=== PATIENT | female | born 1955 | race Caucasian/White ===

== ENCOUNTER → 2016-12-24 | Outpatient (CLI) | payer OTHER ==
--- NOTE | 2016-12-24 15:26 | US ---
Ultrasound Pelvis Complete (Transabdominal and Endovaginal) Including Duplex/Doppler Imaging History: N95.0, POSTMENOPAUSAL BLEEDING. Comparison: None. Technique: Transabdominal and endovaginal ultrasound images were obtained. Endovaginal images obtaine d for better evaluation of the uterine myometrium and adnexa. Duplex/Doppler imaging of adnexa. Findings: Uterus measures 7 x 3 x 2 cm. Endometrial thickness is 1 mm. No definite uterine leiomyomat a. Right ovary measures 1.8 x 1.6 x 1 cm. Left ovary measures 2.2 x 1.8 x 1.4 cm. Left paraovarian 1 x 0 .8 x 0.7 cm simple cyst. No significant free fluid in the pelvis. Color Doppler flow to both ovaries without torsion. Impression: 1. Atrophic uterus without leiomyomata or endometrial thickening. 2. Left paraovarian 1 cm benign appearing simple cyst. 3. No suspicious adnexal masses or free fluid.
== END ==
LOC: FIMAGING 13:55
PROVIDERS: ATTEND Physician Assistant
DX: N85.8 Other specified noninflammatory disorders of uterus (principal); N83.202 Unspecified ovarian cyst, left side